=== PATIENT | male | born 1990 | race African-American/Black ===

== ENCOUNTER 2017-01-30 13:55 | Emergency (ER) | payer SELFPAY ==
--- NOTE | 2017-01-31 16:19 | ER ---
ADMIT: 01/30/2017 RM/LOC: [facility] MR#: [id number] [address] [id number] DINAH CARDOZO [address] [place] [address] Emergency Room Report SEX: M AGE: 26 : 1990 DATE: 01/30/2017 CHIEF COMPLAINT: Tooth pain. HISTORY OF PRESENT ILLNESS: This is a 26-year-old black male, who presents with 7 days duration of tooth pain. States the pain is primarily on his upper jaw, back 2 teeth. Denies any fever, chills, sore throat, cough. Does admit to some tooth pain and upper left jaw pain. No recent illness headache, nausea, vomiting, shortness of breath, chest pain. No known medical allergies. COURSE IN THE EMERGENCY ROOM: The patient seen and examined. He does have overall very poor dentition, does have some caries on tooth #15 and 16, small fracture on tooth 16. Some associated tenderness and swelling about the gum. I did do a dental block on him with bupivacaine and epinephrine which did provide some pain relief. IMPRESSION: Dental caries, fracture tooth #16. DISPOSITION: Patient was discharged to follow up with dentist in the next week, was given a script for [place] 5/325, 1 to 2 tabs every 4 to 6 hours as needed for pain #20 as well as amoxicillin 500 mg one tab p.o. b.i.d. for 7 days. I did stress the importance of following up with a dentist as this is not a problem that will be cured with medication and antibiotics alone. Continue to use ibuprofen as needed for pain in between the [place], caution driving. Questions sought and answered to the best of my ability and to the patient's satisfaction. Discharged in stable condition. MELISSA Steiner / Cristofer Stockton MD / jasper JOB #: [id number] CC: Cristofer Stockton MD, Attending Physician Samantha Oquendo MD, Family Physician
== END 2017-01-30 14:50 | disposition home or self-care (01) ==
LOC: ER 13:55
PROC: 3E0T3BZ Introduction of Anesthetic Agent into Peripheral Nerves and Plexi, Percutaneous Approach (ICD-10-PCS; principal; 2017-01-30)
DX: S02.5XXA Fracture of tooth (traumatic), initial encounter for closed fracture (principal); K02.9 Dental caries, unspecified; F17.210 Nicotine dependence, cigarettes, uncomplicated; X58.XXXA Exposure to other specified factors, initial encounter